=== PATIENT | female | born 1945 | race Caucasian/White ===

== ENCOUNTER 2019-10-16 06:06 | Inpatient (IN) | payer OTHER ==
[2019-10-10 10:54] LABS: Basophils # (auto) 0 10 ^3/uL (0-0.2); Basophils % (auto) 0.7 % (0.0-2.0); Eosinophils # (auto) 0.1 10 ^3/uL (0-0.8); Eosinophils % (auto) 2.2 % (0.0-7.0); Hematocrit 41.6 % (36.0-46.0); Lymphocytes # (auto) 2.1 10 ^3/uL (0.4-5.4); Lymphocytes % (auto) 34.5 % (10.0-50.0); Mean Corpuscular Hemoglobin 31.3 pg (28.0-32.0); Mean Corpuscular Hgb Conc. 33.7 g/dL (32.0-36.0); Monocytes # (auto) 0.6 10 ^3/uL (0-1.3); Monocytes % (auto) 10.3 % (0.0-12.0); Neutrophils # (auto) 3.2 10 ^3/uL (1.6-8.6); Neutrophils % (auto) 52.3 % (37.0-80.0); Nucleated Red Blood Cells % 0.1 %; Platelet Count (auto) 382 10^3/uL (140-450); Red Blood Cells 4.47 10^6/uL (4.0-5.20); Red Cell Distribution Width 13.7 % (11.8-14.3); Urine Bacteria FEW /hpf (None Seen); Urine Blood Negative /uL (Negative); Urine Specific Gravity 1.013 (1.001-1.035); Urine WBC 11 /hpf (0 - 5); White Blood Cell 6.1 10^3/uL (4.4-10.8)
[2019-10-10 11:22] LABS: Calcium 9.4 mg/dL (8.5-10.1); Potassium 4.4 mmol/L (3.5-5.1)
[2019-10-10 11:26] LABS: BUN/Creatinine Ratio 23.7; Bilirubin, Total 0.3 mg/dL (0.2-1.0); Total Protein 7.4 g/dL (6.4-8.2)
[2019-10-10 11:32] LABS: INR 0.98 (0.9-1.15); Partial Thromboplastin Time 27.2 sec (23.0-31.2)
[2019-10-16] VITALS (13 sets, daily range): BP systolic 92–123; BP diastolic 48–69
[~2019-10-16] VITALS: Ht 170.2 cm; Wt 91.0 kg
[~2019-10-16 06:06] MED LIST: ASPI-543 PO; ATOR20TA50 PO; CHOL1CAP PO; CYAN50008 PO; LEVO75TA6 PO; LISI-646 PO; MAGN250T22 PO; METF-370 PO; MULT-927 PO; TURM500C3 PO; ZINC50TA7 PO
[2019-10-16] MEDS ORDERED: ceFAZolin 1GM/50ML 100 ML IV ONE (07:11)
[2019-10-16] MEDS ORDERED: MORPHINE SULF(PF) 0.5MG/ML 10ML VIAL ONE ×2 (07:17→07:47)
[2019-10-16] MEDS ORDERED: KETOROLAC TROMETH 30 MG/ML 1ML VIAL ONE (07:18)
[2019-10-16] MEDS ORDERED: TRANEXAMIC ACID 20 ML ONE (07:19)
[2019-10-16] MEDS ORDERED: BUPIVACAINE W/ EPINEPH 0.25% INJ 50ML MDV ONE (07:19)
[2019-10-16] MEDS ORDERED: VANCOMYCIN HCL 1000 MG VL ONE (07:20)
[2019-10-16] MEDS ORDERED: DexAMETHasone SOD PHOS 10MG/1ML VIAL INJ IV ONE (07:25)
[2019-10-16] MEDS ORDERED: ePHEDrine SULFATE 50 MG/ML AMP IV ONE (07:25)
[2019-10-16] MEDS ORDERED: PREGABALIN CAPSULE 75 MG CAP PO ONE (07:30)
[2019-10-16] MEDS ORDERED: ACETAMINOPHEN IV 1000 MG/100ML (10MG/ML) IV ONE (07:30)
[2019-10-16] MEDS ORDERED: CELECOXIB 100 MG CAP PO ONE (07:30)
[2019-10-16] MEDS ORDERED: TETRACAINE 1% INJ 2 ML VIAL IJ ONE (07:42)
[2019-10-16] MEDS ORDERED: MIDAZOLAM HCL 1MG/1ML-2 ML VIAL ONE ×2 (07:47→08:23)
[2019-10-16] MEDS ORDERED: fentaNYL CITRATE 100 MCG/2 ML VL ONE (07:47)
[2019-10-16] MEDS ORDERED: PROPOFOL 10 MG/ML 20 ML IV ONE (08:22)
[2019-10-16] MEDS ORDERED: diphenhdrAMINE HCL 50 MG/1 ML VL IV PRN (09:45)
[2019-10-16] MEDS ORDERED: ACCU-CHEK COMFORT CURVE STRIP VI ONE (09:45)
[2019-10-16] MEDS ORDERED: ONDANSETRON HCL 4 MG/2 ML VIAL IV PRN ×2 (09:45→10:45)
[2019-10-16] MEDS ORDERED: NALOXONE HCL 0.4 MG/ML VIAL IV PRN (09:45)
[2019-10-16] MEDS ORDERED: NALBUPHINE HCL 10 MG/1ml INJECTION SUBCUT ONE (09:45)
[2019-10-16] MEDS ORDERED: LABETALOL HCL 5 MG/ML 4ML SYRINGE IV PRN (09:45)
[2019-10-16] MEDS ORDERED: DexAMETHasone SOD PHOS 10MG/1ML VIAL INJ IV PRN (09:45)
[2019-10-16] MEDS ORDERED: ePHEDrine SULFATE 50 MG/ML AMP IV PRN (09:45)
[2019-10-16] MEDS ORDERED: HYDROmorphone HCL 2 MG/ML VL IV PRN ×2 (09:45→10:45)
[2019-10-16] MEDS ORDERED: MIDAZOLAM HCL 1MG/1ML-2 ML VIAL IV PRN (09:45)
[2019-10-16] MEDS ORDERED: ACETAMINOPHEN 325 MG TAB PO PRN (10:45)
[2019-10-16] MEDS ORDERED: HYDROcodone-ACET 5/325MG TAB PO PRN (10:45)
[2019-10-16] MEDS ORDERED: MORPHINE SULF INJ 2 MG/ML SYRINGE 1ML IV PRN (10:45)
[2019-10-16] MEDS ORDERED: ceFAZolin 1GM/50ML 50 ML IV SCH (10:45)
[2019-10-16] MEDS ORDERED: DEXTROSE (50%) 50ML SYRG IV PRN (10:45)
[2019-10-16] MEDS ORDERED: traMADol HCL 50 MG TAB PO PRN (10:45)
[2019-10-16] MEDS ORDERED: NITROGLYCERIN 0.4 MG SL TAB SL PRN (10:45)
[2019-10-16] MEDS: ACCU-CHEK COMFORT CURVE STRIP VI SCH ×3 (11:30→21:58)
[2019-10-16] MEDS: InsuLIN REG 1unit/0.01ml Soln (100units/ml) SC SCH ×3 (11:30→22:01)
[2019-10-16] MEDS ORDERED: ACCU-CHEK COMFORT CURVE STRIP VI SCH (11:30)
--- NOTE | 2019-10-16 13:30 | NUR ---
Telemetry admit from [facility] admitted to Telemetry unit after SBAR received. Patient oriented to Kim Mchugh, primary RN, unit, room, bed, and unit policies regarding patient care and visiting hours. Patient now on continuous telemetry monitoring, tele box # 51 and telemetry reading on arrival to unit is sinus wilver 56. Patient placed on bedside oxygen, weighed by bedscale and encouraged to call if they need something. All questions and concerns addressed, patient verbalized understanding. Rt hip aquaseal dressing clean, dry, and intact, pt has abductor pillow in, call light wihtin reach, jordan draining to gravity, pt denies any pain or discomfort at this time, will continue to monitor pt.
[2019-10-16] MEDS: SODIUM CHLOR 0.9% PF (SALINE LOCK) 10ML VIAL/SYR IV SCH ×2 (14:02→21:58)
[2019-10-16] MEDS: LACTATED RINGER'S 1,000 ML IV SCH (14:18)
--- NOTE | 2019-10-16 16:25 | NUR ---
Pt got out of bed and ambulated with a walker with PT tech assistance.
[2019-10-16] MEDS: CHOLECALCIFEROL (VITD3) 1,000UNIT=25mCg TAB PO SCH (17:21)
[2019-10-16] MEDS: MULTIPLE VITAMINS W/ MINERALS TAB PO SCH (17:21)
[2019-10-16] MEDS: [UNRECOGNIZED DRUG - OTHER] PO SCH (17:30)
[2019-10-16] MEDS: CYANOCOBALAMIN 5000 MCG PO SCH (17:30)
--- NOTE | 2019-10-16 19:30 | NUR ---
Opening Shift Note Assumed care of patient, awake and alert x4. No S/S of distress/SOB or pain. Dressing to right hip is C/D/I, jordan is hung below bladder and draining yellow urine, abductor pillow is in place. Call light is within reach, fall precautions are in place. Instructed on POC and to call for assist PRN, will continue to monitor for changes Q1hr and PRN.
[2019-10-16] MEDS: ceFAZolin 1GM/50ML 50 ML IV SCH (20:01)
[2019-10-16] MEDS: DOCUSATE SOD 100 MG CAP PO SCH (21:58)
[2019-10-17] VITALS (18 sets, daily range): BP systolic 86–113; BP diastolic 46–71
[2019-10-17] MEDS: ceFAZolin 1GM/50ML 50 ML IV SCH (02:00)
[2019-10-17] MEDS: SODIUM CHLOR 0.9% PF (SALINE LOCK) 10ML VIAL/SYR IV SCH ×3 (05:35→21:32)
[2019-10-17] MEDS: LACTATED RINGER'S 1,000 ML IV SCH ×3 (05:35→16:56)
[2019-10-17 05:40] LABS: Hematocrit 30.3 % (36.0-46.0)
[2019-10-17 05:59] LABS: Potassium 4.5 mmol/L (3.5-5.1)
[2019-10-17 06:06] LABS: Albumin 2.8 g/dL (3.4-5.0); BUN/Creatinine Ratio 27.6; Bilirubin, Total 0.3 mg/dL (0.2-1.0); Calcium 8.3 mg/dL (8.5-10.1); Total Protein 5.5 g/dL (6.4-8.2)
[2019-10-17] MEDS: LEVOTHYROXINE SODIUM 25 MCG TAB PO SCH (06:24)
[2019-10-17] MEDS: ACCU-CHEK COMFORT CURVE STRIP VI SCH ×4 (06:24→21:31)
[2019-10-17] MEDS: InsuLIN REG 1unit/0.01ml Soln (100units/ml) SC SCH ×4 (06:24→22:19)
--- NOTE | 2019-10-17 08:00 | NUR ---
OPENING SHIFT NOTE ASSUMED CARE OF PATIENT AWAKE AND ALERT. NO S/S OF DISTRESS NOTED OR COMPLAINTS OF PAIN. PATIENT UPDATED ON POC FOR THE DAY AND ALL QUESTIONS ANSWERED. BED IS IN LOWEST, LOCKED POSITION WITH SIDE RAILS UP X2 AND CALL LIGHT WITHIN REACH. WILL CONTINUE TO MONITOR Q1H AND PRN.
[2019-10-17] MEDS: DOCUSATE SOD 100 MG CAP PO SCH ×2 (09:31→22:21)
[2019-10-17] MEDS: metFORMIN HYDROCHLORIDE 500 MG TAB PO SCH (09:31)
[2019-10-17] MEDS: ENOXAPARIN SOD 40 MG/0.4 ML SYRINGE SC SCH (09:32)
[2019-10-17] MEDS: ATORVASTATIN 20 MG TAB PO SCH (09:32)
[2019-10-17] MEDS: LISINOPRIL 20 MG TAB PO SCH (09:32)
[2019-10-17] MEDS: CYANOCOBALAMIN 5000 MCG PO SCH (17:30)
[2019-10-17] MEDS: [UNRECOGNIZED DRUG - OTHER] PO SCH (17:30)
[2019-10-17] MEDS: MULTIPLE VITAMINS W/ MINERALS TAB PO SCH (17:37)
[2019-10-17] MEDS: CHOLECALCIFEROL (VITD3) 1,000UNIT=25mCg TAB PO SCH (17:38)
[2019-10-18] MEDS: LACTATED RINGER'S 1,000 ML IV SCH ×2 (02:40→11:54)
[2019-10-18 05:00] VITALS: BP 107/56
[2019-10-18 06:15] LABS: Hematocrit 28.5 % (36.0-46.0); Hemoglobin 9.8 g/dL (12.2-16.2)
[2019-10-18] MEDS: SODIUM CHLOR 0.9% PF (SALINE LOCK) 10ML VIAL/SYR IV SCH ×2 (06:42→13:24)
[2019-10-18] MEDS: LEVOTHYROXINE SODIUM 25 MCG TAB PO SCH (06:43)
[2019-10-18] MEDS: ACCU-CHEK COMFORT CURVE STRIP VI SCH ×2 (06:44→11:30)
[2019-10-18] MEDS: InsuLIN REG 1unit/0.01ml Soln (100units/ml) SC SCH ×2 (06:44→11:30)
[2019-10-18 09:00] VITALS: BP 96/49
[2019-10-18] MEDS: LISINOPRIL 20 MG TAB PO SCH (09:16)
[2019-10-18] MEDS: ATORVASTATIN 20 MG TAB PO SCH (09:16)
[2019-10-18] MEDS: DOCUSATE SOD 100 MG CAP PO SCH (09:16)
[2019-10-18] MEDS: metFORMIN HYDROCHLORIDE 500 MG TAB PO SCH (09:16)
[2019-10-18] MEDS: ENOXAPARIN SOD 40 MG/0.4 ML SYRINGE SC SCH (09:17)
--- NOTE | 2019-10-18 11:32 | NUR ---
Assessment Patient is a 74-year-old female who is alert and oriented. Prior to admission patient lived home with family and functioned independently. Patient informed me she can care for her own ADLs. Per patient she has no need for DME. Advised patient there is a social service consult for home health physical therapy, bedside commode and walker. Informed patient clinical information will be faxed to [employer] who will provided with home health and medical equipment. Informed patient she has a right to speak to a licensed social worker regarding all care. Informed patient he has a right to participate in all discharge planning. Patient verbalized understanding and agreed to discharge plan. Faxed clinical information to [employer]. Per SJ Champagne with [facility], [facility] will see patient within 24-48hrs upon d/c day and will deliver bedside commode to home and walker to bedside . Informed NORAH Bailon. Addendum: 10/18/19 at 1152 by MERON RICHARDSON Amended: Links added.
[2019-10-18 14:00] VITALS: BP 90/59
[2019-10-18 16:12] VITALS: BP 90/59
--- NOTE | 2019-10-18 16:59 | NUR ---
PT ROSALES REMOVED AT APPROX. 1000. PT VOIDED X 1 WITH NO DIFFICULTY APPROX. 1530. DISCHARGE INSTRUCTIONS GIVEN TO PT. VERBALIZED UNDERSTANDING. ALL APPROPRIATE PAPERWORK SIGNED IV AND TELE BOX REMOVED. WALKER DELIVERED TO PT ROOM, BEDSIDE COMMODE DELIVERED TO PT HOME. PT DISCHARGED HOME WITH FAMILY.
== END 2019-10-18 17:00 | disposition home health service (06) | DRG 470 ==
LOC: OVERFLOW 06:06 → EDSTATUS 06:45 → TELE-WESTW 13:30
PROVIDERS: ADMIT Orthopaedic Surgery Adult Reconstructive Orthopaedic Surgery; ATTEND Orthopaedic Surgery Adult Reconstructive Orthopaedic Surgery
PROC: 0SR90JZ Replacement of Right Hip Joint with Synthetic Substitute, Open Approach (ICD-10-PCS; principal; 2019-10-16 07:48)
DX: M16.11 Unilateral primary osteoarthritis, right hip (principal); Z20.828 Contact with and (suspected) exposure to other viral communicable diseases; E78.5 Hyperlipidemia, unspecified; E03.9 Hypothyroidism, unspecified; E11.9 Type 2 diabetes mellitus without complications; I10 Essential (primary) hypertension
CPT/HCPCS: 36415; 72170; 73501; 76000; 80053; 81001; 82962; 85014; 85018; 85025; 85610; 85730; 86850; 86900; 86901; 97110; 97116; 97163; 97530; A4565; C1776; G0378; J0131; J0690; J1100; J1815; J1885; J2250; J2704

== ENCOUNTER 2025-02-10 18:07 | Emergency (ER) | payer OTHER ==
[~2025-02-10] VITALS: Ht 170.2 cm; Wt 95.4 kg
[~2025-02-10 18:07] MED LIST changes: -LISI-646 PO; +LISI20TA56 PO
--- NOTE | 2025-02-10 18:45 | ECG ---
[facility] Test Date: 2025-02-10 Test Time: 18:10:06 Pat Name: GIBRAN MORGAN Department: [facility] ED Patient ID: [id number] Room: Gender: F Under Trimmer: LANA : 1945 Requested By: MARCO A HESS Order Number: [id number] Reading MD: Aneudy Connolly Measurements Intervals [place] Rate: 68 P: -41 NM: 228 QRS: -23 QRSD: 138 T: -3 QT: 464 QTc: 494 Interpretive Statements Sinus rhythm Right bundle branch block Inferior infarct, old Electronically Signed On 02-11-2025 15:28:46 PST by Aneudy Connolly Please click the below link to view image of tracing.
--- NOTE | 2025-02-10 19:09 | ED.PDOC ---
Altered Mental Status HPI Comments This is a 79 year-old female who presents to the ED via EMS with a chief complaint of witnessed syncopal episode at home minutes ago. Patient reports additional symptoms of dizziness at this time. Patient reports this happening before, years ago, but denies any history of epilepsy or head trauma. Patient states she had very little to eat/drink today. Per EMS, patients BP was 88/68 on scene. Patient has no further complaints or modifying factors at this time. Patient denies any fever, chills, chest pain, headache, or palpitations. Chief Complaint: Syncope Time Seen by MD: 18:32 Allergies: Coded Allergies: NO KNOWN ALLERGIES (Unverified , 10/10/19) Home Meds Reported Medications Magnesium Oxide (Magnesium) 250 Mg Tab, 250 MG PO DAILY@DINNER, TAB 10/10/19 Zinc Gluconate (Zinc) 50 Mg Tab, 50 MG PO DAILY@DINNER, TAB 10/10/19 Cyanocobalamin (B12 Fast Dissolve) 5,000 Mcg Tab, 5000 MCG PO DAILY@DINNER, TAB 10/10/19 Cholecalciferol (D3 Maximum Strength) 5,000 Unit Cap, 5000 UNIT PO DAILY@DINNER, CAP 10/10/19 Curcuma Longa (Turmeric) Extra (TURMERIC) 500 Mg Cap, 1500 MG PO DAILY@DINNER, CAP 10/10/19 Multiple Vitamins W/ Minerals (Centrum Silver 50+Women) 1 Tab Tab, 1 TAB PO DAILY@DINNER, TAB 10/10/19 Aspirin (Aspir-Low) 81 Mg Tab, 81 MG PO DAILY for 30 Days, MG 10/10/19 Metformin Hydrochloride (Metformin Hcl) 500 Mg Tab, 1 TAB PO DAILY, #60 TAB 3 Refills 10/10/19 Lisinopril (Lisinopril) 20 Mg Tab, 20 MG PO DAILY for 30 Days, MG 10/10/19 Atorvastatin Calcium (ATORVASTATIN CALCIUM) 20 Mg Tab, 1 TAB PO DAILY, #30 TAB 5 Refills 10/10/19 Levothyroxine Sodium (Levothyroxine Sodium) 75 Mcg Tab, 1 TAB PO DAILY, #30 TAB 5 Refills 10/10/19 Information Source: Patient, Emergency Med Personnel Mode of Arrival: EMS Severity: Mild Timing: Minutes Past Medical History PAST MEDICAL HISTORY: DM, HTN, Thyroid Surgical History: Denies all surgeries TRANSPORTATION SERVICES REPRESENTATIVE History: No Pertinent TRANSPORTATION SERVICES REPRESENTATIVE History Family History Family History: Reviewed,noncontributory to illness, No family hx of Cancer, No family hx of DM, No family hx of Heart zac, No family hx of HTN, No family hx ofKidney zac, No family hx of Liver zac, No family hx of Lung zac, No family hx of Stroke Social History Smoker: Non-Smoker Alcohol: Denies ETOH Use Drugs: Denies Drug Use Lives In: Home Constitutional: denies: chills, diaphoresis, fatigue, fever, malaise, sweats, weakness, others EENTM: denies: blurred vision, double vision, ear bleeding, ear discharge, ear drainage, ear pain, ear ringing, eye pain, eye redness, hearing loss, mouth pain, mouth swelling, nasal discharge, nose bleeding, nose congestion, nose pain, photophobia, tearing, throat pain, throat swelling, voice changes, others Respiratory: denies: cough, hemoptysis, orthopnea, SOB at rest, shortness of breath, SOB with excertion, stridor, wheezing, others Cardiovascular: denies: chest pain, dizzy spells, diaphoresis, Dyspnea on exertion, edema, irregular heart beat, left arm pain, lightheadedness, palpitations, PND, syncope, others Gastrointestinal: denies: abdomen distended, abdominal pain, blood streaked bowels, constipated, diarrhea, dysphagia, difficulty swallowing, hematemesis, melena, nausea, poor appetite, poor fluid intake, rectal bleeding, rectal pain, vomiting, others Genitourinary: denies: abnormal vagina bleeding, burning, dyspareunia, dysuria, flank pain, frequency, hematuria, incontinence, pain, , vagina discharge, urgency, others Neurological: reports: fainting; denies: dizziness, headache, left sided numbness, left sided weakness, numbness, paresthesia, pre-existing deficit, right sided numbness, right sided weakness, seizure, speech problems, tingling, tremors, weakness, others Musculoskeletal: denies: back pain, gout, joint pain, joint swelling, muscle pain, muscle stiffness, neck pain, others Integumetry: denies: bruises, change in color, change in hair/nails, dryness, laceration, lesions, lumps, rash, wounds, others Allergic/Immunocompromised: denies: Difficulty Healing, Frequent Infections, Hives, Itching, others Hematologic/Lymphatic: denies: anemia, blood clots, easy bleeding, easy bruising, swollen glands, others Endocrine: denies: excessive hunger, excessive sweating, excessive thirst, excessive urination, flushing, intolerance to cold, intolerance to heat, unexplained weight gain, unexplained weight loss, others Psychiatric: denies: anxiety, bipolar disorder, depression, hopeless, panic disorder, schizophrenia, sleepless, suicidal, others All Other Systems: Reviewed and Negative Physical Exam General Appearance: No Apparent Distress, Obese HEENT: Normal ENT Inspection, Pharynx Normal, TMs Normal Neck: Full Range of Motion, Non-Tender, Normal, Normal Inspection Respiratory: Chest Non-Tender, Lungs Clear, No Accessory Muscle Use, No Respiratory Distress, Normal Breath Sounds Cardiovascular: No Edema, No JVD, No Murmur, No Gallop, Normal Peripheral Pulses, Regular Rate/Rhythm Breast Exam: Deferred Gastrointestinal: No Organomegaly, Non Tender, No Pulsatile Mass, Normal Bowel Sounds, Soft Genitalia: Deferred Pelvic: Deferred Rectal: Deferred Extremities: No calf tenderness, Normal capillary refill, Normal inspection, Normal range of motion, Non-tender, No pedal edema Musculoskeletal : Apperance: Normal Neurologic: Alert, emergency department rn II-XII nml as Tested, No Motor Deficits, Normal Affect, Normal Mood, No Sensory Deficits Cerebellar Function: Normal Reflexes: Normal Skin: Dry, Normal Color, Warm Lymphatic: No Adenopathy EKG EKG : Pulse Rate (adult): 68 [place]: Normal Block: RBBB Comments Sinus rhythm Right bundle branch block Inferior infarct, old Was a procedure done? Was a procedure done?: No Differential Diagnosis (ALOC) Differential Diagnosis: Dehydration, Hypoglycemia, Seizure, Closed Head Injury, ETOH Intoxication X-Ray, Labs, Meds, VS Vital Signs Date Time Temp Pulse Resp B/P (MAP) Pulse Ox O2 Delivery O2 Flow Rate FiO2 02/10/25 21:12 97.6 69 16 105/58 (74) 96 97.6 02/10/25 19:09 68 02/10/25 18:42 97.7 70 18 108/57 98 97.7 02/10/25 18:10 68 Lab Test 02/10/25 20:17 02/10/25 19:17 02/10/25 18:16 Range/Units Troponin I High Sensitivity 7 6 </=34 ng/L White Blood Count 12.1 H 4.4-10.8 10^3/uL Red Blood Count 4.37 4.0-5.20 10^6/uL Hemoglobin 13.1 12.2-16.2 g/dL Hematocrit 40.0 36.0-46.0 % Mean Corpuscular Volume 91.6 80.0-100.0 fL Mean Corpuscular Hemoglobin 30.1 28.0-32.0 pg Mean Corpuscular Hemoglobin Concent 32.8 32.0-36.0 g/dL Red Cell Distribution Width 14.8 H 11.8-14.3 % Platelet Count 342 140-450 10^3/uL Mean Platelet Volume 6.8 L 6.9-10.8 fL Neutrophils (%) (Auto) 80.6 H 37.0-80.0 % Lymphocytes (%) (Auto) 11.7 10.0-50.0 % Monocytes (%) (Auto) 7.0 0.0-12.0 % Eosinophils (%) (Auto) 0.6 0.0-7.0 % Basophils (%) (Auto) 0.1 0.0-2.0 % Neutrophils # (Auto) 9.8 H 1.6-8.6 10 ^3/uL Lymphocytes # (Auto) 1.4 0.4-5.4 10 ^3/uL Monocytes # (Auto) 0.8 0-1.3 10 ^3/uL Eosinophils # (Auto) 0.1 0-0.8 10 ^3/uL Basophils # (Auto) 0 0-0.2 10 ^3/uL Nucleated Red Blood Cells 0.0 % Sodium Level 144 136-145 mmol/L Potassium Level 4.5 3.5-5.1 mmol/L Chloride Level 111 H 98-107 mmol/L Carbon Dioxide Level 23 20-31 mmol/L Anion Gap 10 5-15 Blood Urea Nitrogen 27 H 9-23 mg/dL Creatinine 1.11 H 0.550-1.02 mg/dL Glomerular Filtration Rate Calc 51 >90 mL/min BUN/Creatinine Ratio 24.3 H 10.0-20.0 Serum Glucose 112 H 74-106 mg/dL Calcium Level 9.7 8.7-10.4 mg/dL POC Glucose 140 H 70-106 mg/dl [facility] [id number] [facility] [id number] Ph: [phone] DIAGNOSTIC IMAGING Diagnostic Imaging Report : [id number] Signed PATIENT: GIBRAN MORGANACCT: [id number] UNIT: [id number] : 1945 LOC: ER ROOM / BED: / AGE / SEX: 79 / F ADM STATUS: REG ER SERVICE 06 ORDERING PHYSICIAN: MARCO A HESS MD PROCEDURE(s): CXR1 - CHEST XRAY 1 VIEW REASON: syncope ORDER NUMBER(s): [id number], ACCESSION NUMBER(s): [id number] CHEST RADIOGRAPH INDICATION: syncope TECHNIQUE: Single frontal view of the chest was obtained COMPARISON: None FINDINGS: Lines and Tubes: None Lungs: No focal consolidation. Hiatal hernia in the retrocardiac area left lower lobe. Pleura: No effusion. No pneumothorax. Cardiomediastinal contours: Unremarkable Bones: No acute osseous abnormality. IMPRESSION: 1. No acute cardiopulmonary disease. 2. Hiatal hernia in the retrocardiac area. X-Ray, Labs, Meds, VS Comment Previous history reviewed: pre-DM, Hyperthyroid, HTN The following tests were ordered, and results were reviewed by me: CBC, BMP, Troponin, EKG Additional Information was gathered from interviewing the following independent historians: N/A I reviewed and agreed with the following test results read by other providers: Chest XRAY I discussed treatment and results with medical personnel and: patient Comprehensive systems review obtained and negative except for what is stated in the HPI. Time of 1ST Reevaluation: 19:33 Reevaluation 1ST: Unchanged Patient Education/Counseling: Diagnosis, Treatment Family Education/Counseling: No Family Present Comments This is a patient who presented with syncope. She has no neurologic deficits. No injuries. Cardiac arrhythmia is the primary concern. However we have not capture any here and patient has not have any occurrences here however she was hypotensive on scene. Her blood pressure has improved but still is relatively low. Patient will be admitted for further evaluation for the cause of syncope and treatment for it. I spoke to Dr. Rosales who will take over the care from this point SEPSIS Sepsis Screen Date sepsis recognized/suspect: Feb 10, 2025 Time Sepsis recognized/suspect: 1810 Recent Procedure: No On Antibiotic Therapy: No Respiratory Rate >20: No Heart Rate >90: No Temp<36 C (96.8 F) or >38.3 C: No SBP <90 or MAP <65 mmHG: No New Acute Mental Status Change: No Is the patient on CPAP, BIPAP,: No Physician Orders Continuous Ekg Monitoring 08,12,16,20,00,04 (02/10/25 19:07) Chest Xray 1 View (02/10/25 19:07) Vital Signs Date Time Temp Pulse Resp B/P (MAP) Pulse Ox O2 Delivery O2 Flow Rate FiO2 02/10/25 21:12 97.6 69 16 105/58 (74) 96 97.6 02/10/25 19:09 68 02/10/25 18:42 97.7 70 18 108/57 98 97.7 02/10/25 18:10 68 Laboratory Tests Test 02/10/25 19:17 White Blood Count 12.1 10^3/uL (4.4-10.8) H Departure 1 Departure Time of Disposition: 22:41 Impression: Primary Impression: Syncope Additional Impression: Hypotension Disposition: ADMITTED INPATIENT Admit to: Tele Condition: Serious Discharged With: Self Critical Care Note Critical Care Time?: Yes (55 min-critical care time only) Critical care comment: Total critical care time: Approximately 55 minutes Due to a high probability of clinically significant, life threatening deterioration, the patient required my highest level of preparedness to intervene emergently and I personally spent this critical care time directly and personally managing the patient. This critical care time included obtaining a history; examining the patient; pulse oximetry; ordering and review of studies; arranging urgent treatment with development of a management plan; evaluation of patient's response to treatment; frequent reassessment; and, discussions with other providers. This critical care time was performed to assess and manage the high probability of imminent, life-threatening deterioration that could result in multi-organ failure. It was exclusive of separately billable procedures and treating other patients. Stability Stability form required: No Heart Score Heart Score: Heart Score Response (Comments) Value History Slightly Suspicious 0 EKG Normal 0 Age >65 2 Risk Factors 1 or 2 risk factors 1 Troponin N/A 0 Total 3 I personally scribed for MARCO A HESS MD ([facility]) on 02/10/25 at 19:09. Electronically submitted by Gay Avelar ([email or web address]). I personally scribed for MARCO A HESS MD ([facility]) on 02/10/25 at 19:12. Electronically submitted by Gay Avelar ([email or web address]). I personally scribed for MARCO A HESS MD ([facility]) on 02/10/25 at 20:17. Electronically submitted by Gay Avelar ([email or web address]). I personally scribed for MARCO A HESS MD ([facility]) on 02/10/25 at 20:28. Electronically submitted by Gay Avelar ([email or web address] MARCO A HESS MD Feb 10, 2025 19:09
[2025-02-10 19:34] LABS: Hematocrit 40.0 % (36.0-46.0); Hemoglobin 13.1 g/dL (12.2-16.2); Mean Corpuscular Hemoglobin 30.1 pg (28.0-32.0); Mean Corpuscular Volume 91.6 fL (80.0-100.0); Nucleated Red Blood Cells % 0.0 %
[2025-02-10 19:39] LABS: Potassium 4.5 mmol/L (3.5-5.1); Sodium 144 mmol/L (136-145)
[2025-02-10 19:40] LABS: Anion Gap 10 (5-15); Calcium 9.7 mg/dL (8.7-10.4); Carbon Dioxide 23 mmol/L (20-31)
[2025-02-10 19:45] LABS: BUN/Creatinine Ratio 24.3 (10.0-20.0)
--- NOTE | 2025-02-10 19:49 | DVH ---
CHEST RADIOGRAPH INDICATION: syncope TECHNIQUE: Single frontal view of the chest was obtained COMPARISON: None FINDINGS: Lines and Tubes: None Lungs: No focal consolidation. Hiatal hernia in the retrocardiac area left lower lobe. Pleura: No effusion. No pneumothorax. Cardiomediastinal contours: Unremarkable Bones: No acute osseous abnormality. IMPRESSION: 1. No acute cardiopulmonary disease. 2. Hiatal hernia in the retrocardiac area.
[2025-02-10 20:18] LABS: Blood Urea Nitrogen 27 mg/dL (9-23); Chloride 111 mmol/L (98-107); Glucose 112 mg/dL (74-106)
[2025-02-11 03:45] VITALS: BP 129/90; PULSE 59; RESP 16; TEMP 97.7; O2SAT 97
--- NOTE | 2025-02-11 07:51 | DVHDS2 ---
Physician Discharge Progress N Final Diagnosis: Nearsyncope Dehydration Operations or Procedures: Operations or Procedures none Other Interventions Other Interventions lab results, EKG, CXR Consultations: Consultations none Commentary: Commentary 79 year-old female with HTN, DM, obesity was brought to the ER after having a syncopal episode at home. Per AMS her initial BP was 88/68. In the ER patient c/o lightheadedness. She denies, CP, SOB, palpitations, TESFAYE, AP, nausea or any other symptoms. Patient informed that she did not drink or eat much yesterday. Her labs showed BUN/Cr ratio of 24. After receiving a bolus of IV NS, patient felt significantly better and wanted to be discharged. Her BP normalized to 129/90. Her EKG showed SR but with RBBB and ol ischemia. Patient will be scheduled for outpatient cardiology visit. Patient was discharged with stable VS, was ambulatory with good balance. Condition on Discharge: Stable Disposition: Home SNF Discharge Will this Physician continue t: No Discharge Instructions: Diet: Cardiac 2g Na,low cholest Diet comment: Sufficient hydration to prevent dehydration Activity: No Restrictions, As Tolerated Follow Up/Referral: [facility] case management assistant will schedule an appointment with a candle making supervisor and coordinate the time with the patient tomorrow Medications: Continue home medications Follow Up Care: Discharge Statement: "Patient was advised to return to the ER or call 911 if any headaches, dizziness, shortness of breath, chest pain, abdominal pain, bleeding, fevers, or worsening of medical condition. Patient was counseled about treatment plan, medications, possible side effects, patientverbalized understanding. All questions were answered to the best of my ability. This discharge took greater then 30 minutes in planning, reviewing documentation, counseling the patient, and discussing with other team members." JAYNE MAY MD Feb 11, 2025 07:51
== END 2025-02-11 04:20 | disposition home or self-care (01) ==
LOC: ER 18:07 → EDBD 18:07 → ER 02-11 04:20
DX: R55 Syncope and collapse (principal); E11.9 Type 2 diabetes mellitus without complications; E66.9 Obesity, unspecified; I10 Essential (primary) hypertension; Z79.899 Other long term (current) drug therapy; Z79.890 Hormone replacement therapy; Z79.82 Long term (current) use of aspirin
CPT/HCPCS: 36415; 71045; 80048; 82947; 82962; 84484; 85025; 93005